=== PATIENT | male | born 1965 | race Caucasian/White ===

== ENCOUNTER → 2017-02-04 | Outpatient (CLI) | payer MEDICARE, OTHER ==
[~2017-02-04] MED LIST: ASPIR 8181 MG PO; IBUPROFEN800 MG PO; LEXAPRO20 MG PO; LOPRESSOR 25 MG25 MG PO; NORVASC10 MG PO
== END ==
LOC: HEART 5 13:59
DX: R07.89 Other chest pain (principal); I10 Essential (primary) hypertension; R53.83 Other fatigue; R06.00 Dyspnea, unspecified; I34.0 Nonrheumatic mitral (valve) insufficiency
CPT/HCPCS: 93306